=== PATIENT | female | born 1995 | race African-American/Black ===

== ENCOUNTER 2017-09-11 15:12 | Emergency (ER) | payer OTHER ==
[~2017-09-11] VITALS: Ht 162.6 cm; Wt 75.0 kg
[2017-09-11] MEDS ORDERED: IBUPROFEN 600MG TABLET PO ONE (16:00)
[2017-09-11] MEDS ORDERED: TRAMADOL 50MG TABLET PO ONE (16:00)
[2017-09-11 19:09] VITALS: BP 111/64
== END 2017-09-11 19:12 | disposition home or self-care (01) ==
LOC: ER 15:12
DX: S50.11XA Contusion of right forearm, initial encounter (principal); J45.909 Unspecified asthma, uncomplicated; V49.88XA Car occupant (driver) (passenger) injured in other specified transport accidents, initial encounter; Y93.89 Activity, other specified; Y92.89 Other specified places as the place of occurrence of the external cause; Y99.8 Other external cause status
CPT/HCPCS: 29125; 73090; 99284